=== PATIENT | male | born 1960 | race Caucasian/White ===

== ENCOUNTER → 2017-03-07 | Outpatient (CLI) | payer MEDICAID ==
[~2017-03-07] MED LIST: AMOXIL500 MG PO; KEFLEX 500MG.500 MG PO; LORTAB 5/500 501 TAB PO; MAXZIDE 25 MG-31 TAB; METOPROLOL TAR100 MG PO; MINOCYCLINE 10100 MG PO; PEN-VK500 MG PO; VICODIN 5/500 T1 TAB PO
[2017-03-07 10:48] LABS: HEMOGLOBIN 14.3 g/dL (14.1-18.0); LYMPH # 3.3 K/mm3 (0.7-4.5); LYMPH % 36.4 % (10-50)
[2017-03-07 13:33] LABS: BUN 12 mg/dL (7-18)
[2017-03-07 13:34] LABS: GFR (ESTIMATED) 69 ML/MIN (>60)
== END ==
LOC: LAB 10:34
PROVIDERS: Emergency Medicine
DX: E11.9 Type 2 diabetes mellitus without complications (principal); E78.5 Hyperlipidemia, unspecified